=== PATIENT | male | born 1995 | race Caucasian/White ===

== ENCOUNTER 2019-04-29 09:09 | Day surgery (SDC) | payer OTHER ==
[2019-04-28 17:09] VITALS: Ht 177.8 cm; Wt 65.9 kg
[2019-04-29] VITALS (12 sets, daily range): BP systolic 94–110; BP diastolic 46–73; PULSE 50–68; RESP 10–27
[~2019-04-29] VITALS: Ht 177.8 cm; Wt 65.9 kg
[2019-04-29] MEDS ORDERED: CYAN100T PO (09:42)
[2019-04-29] MEDS ORDERED: RIBO400T PO (09:43)
[2019-04-29] MEDS ORDERED: CEFAZOLIN 2 GM/50 ML (PMX) 50 ML IVPB ONE (11:00)
[2019-04-29] MEDS ORDERED: SOD CHLORIDE 0.9% 1,000 ML IV SCH (11:00)
[2019-04-29] MEDS ORDERED: BUPIVACAINE 0.25% (MPF) 30 ML INJ ONE (11:53)
--- NOTE | 2019-04-29 12:09 | PREAC ---
Date/Time of Note Date/Time of Note DATE: 04/29/19 TIME: 12:08 Anesthesia Eval and Record Evaluation Time Pre-Procedure Interview DATE: 04/29/19 TIME: 12:08 Age 24 Sex male NPO: 8 hrs Preoperative diagnosis scalp mass Planned procedure excision scalp mass Past Medical History Past Medical History: None Surgery & Anesthesia Issues No known issue Meds Anticoagulation: No Beta Estiven within 24 hr: No Reason Beta Estiven not given: Pt. not on B-Estiven Reported Medications Riboflavin (Riboflavin) 400 Mg Tablet, 400 MG PO DAILY, TAB 04/29/19 Discontinued Reported Medications Cyanocobalamin* (Vitamin B12*) 100 Mcg Tab, 400 MCG PO DAILY, TAB 04/29/19 Current Medications Sodium Chloride 1,000 ml @ 75 mls/hr [id number] IV ; Start 04/29/19 at 11:00; Stop 04/30/19 at 00:19 Meds reviewed: Yes Allergies Coded Allergies: No Known Drug Allergy (Verified Allergy, Unknown, 04/29/19) Allergies Reviewed: Yes Labs/Studies Labs Reviewed: Reviewed by anesthesiologist Result Diagram: 04/29/19 1050 04/29/19 1050 Laboratory Tests 04/29/19 10:50 test: N/A Studies: ECG (n/a), CXR (n/a) Pre-procedure Exam Last vitals Vital Signs Date Temp Pulse Resp B/P (MAP) Pulse Ox O2 O2 Flow FiO2 Time Delivery Rate 04/29/19 98.4 50 16 110/73 100 Room Air 10:58 (85) Airway: Adequate mouth opening Mallampati: Mallampati I Teeth: Normal Lung: Normal Heart: Normal ASA Physical Status ASA physical status: 1 Emergency: None Planned Anesthetic General/MAC: LMA Planned Pain Management Parenteral pain med Pre-operative Attestations Prior to commencing anesthesia and surgery, the patient was re-evaluated, there was verification of: *The patient's identity *The results of appropriate recent lab work and preoperative vital signs *The above evaluation not changing prior to induction *Anesthetic plan, risk benefits, alternative and complications discussed with patient/family; questions answered; patient/family understands, accepts and wishes to proceed. SANDRA PEREZ MD Apr 29, 2019 12:09
[2019-04-29] MEDS ORDERED: MEPERIDINE 25 MG INJ IV PRN (12:30)
[2019-04-29] MEDS ORDERED: HYDROmorphONE 1 MG/5 ML IV SYRINGE IV PRN ×3 (12:30)
[2019-04-29] MEDS ORDERED: OXYCODONE/ACETAMINOPHEN (5/325) TAB PO PRN ×2 (12:30)
[2019-04-29] MEDS ORDERED: FENTAnyl 50 MCG/ML VIAL IV PRN ×3 (12:30)
[2019-04-29] MEDS ORDERED: DIPHENHYDRAMINE 50 MG INJ IV PRN (12:30)
[2019-04-29] MEDS ORDERED: ONDANSETRON 4 MG INJ IV PRN (12:30)
[2019-04-29] MEDS ORDERED: KETOROLAC 30 MG INJ IV PRN (12:30)
[2019-04-29] MEDS ORDERED: ONDANSETRON 4 MG INJ ONE (12:40)
[2019-04-29] MEDS ORDERED: METOCLOPRAMIDE 10 MG INJ ONE (12:40)
[2019-04-29] MEDS ORDERED: FENTAnyl 50 MCG/ML VIAL ONE (12:40)
[2019-04-29] MEDS ORDERED: PROPOFOL 20 ML ONE ×2 (12:40→13:03)
[2019-04-29] MEDS ORDERED: MIDAZOLAM 1 MG/ML 2 ML INJ ONE (12:40)
[2019-04-29] MEDS ORDERED: KETOROLAC 30 MG INJ ONE (12:52)
[2019-04-29] MEDS ORDERED: BACITRACIN/POLYMYXIN 28.35 GM OINT TOP ONE (13:02)
--- NOTE | 2019-04-29 13:07 | OPR ---
Date/Time of Note Date/Time of Note DATE: 04/29/19 TIME: 13:05 Operative Report Procedure Date: Apr 29, 2019 Preoperative Diagnosis left scalp mass Postoperative Diagnosis same Operation/Procedure Performed 1. excision of left scalp mass 3 cm mass 3 cm incision 2. localized adjacent tissue transfer with the use of skin flaps 6 sq cm defect of scalp 3. therapeutic injection of subcutaneous local anesthesia Surgeon see signature line Hot Cell Technician none Anesthesia Type: general Estimated Blood Loss: 0 - 10 ml's Transfusion none Specimen left scalp mass Grafts/Implants none Complications none Pt Condition Post Procedure: stable Indications This is a 24-year-old male with a left scalp mass. He request surgical excision due to the pain. Risks alternatives benefits and personal were discussed with patient. Potential complications including but not limited to bleeding infection recurrence of mass scar alopecia were discussed the patient. Patient expressed understanding and consents to the operation. Procedure Description Patient is taken to the OR and prepped and draped in usual sterile fashion. Surgical time was performed. IV antibiotics given. Elliptical incision made over the left scalp mass with a 15 blade. Dissection with cautery skin onto the mass and the mass was circumferentially excised. Good hemostasis status. Due to tissue defect localization just transfer with these of skin flaps was performed. Multilayer closure with interrupted 3-0 Vicryl and running 4-0 Monocryl. Therapeutic subcutaneous local anesthesia was injected at the incision site. Bacitracin and dry dressing was applied. Paola PETERSON Apr 29, 2019 13:07
[2019-04-29] MEDS ORDERED: HYDROCODONE/APAP (5/325) TAB PO ONE (13:30)
--- NOTE | 2019-04-30 08:31 | PAC ---
Date/Time of Note Date/Time of Note DATE: 04/30/19 TIME: 08:31 Post-Anesthesia Notes Post-Anesthesia Note Last documented vital signs Vital Signs Date Temp Pulse Resp B/P (MAP) Pulse Ox O2 O2 Flow FiO2 Time Delivery Rate 04/29/19 97.0 55 16 101/55 96 14:23 (70) 04/29/19 Room Air 13:58 04/29/19 8.0 13:18 Activity: WNL Respiratory function: WNL Cardiovascular function: WNL Mental status: Baseline Pain reasonably controlled: Yes Hydration appropriate: Yes Nausea/Vomiting absent: No SANDRA PEREZ MD Apr 30, 2019 08:31
== END 2019-04-29 14:43 | disposition home or self-care (01) ==
LOC: SDS 09:09
PROVIDERS: ATTEND Surgery
DX: L72.11 Pilar cyst (principal); F41.9 Anxiety disorder, unspecified
CPT/HCPCS: 14020; 80053; 85025; 85610; 85730; J0690; J1885; J2250; J2405; J2765; J3010; Z7610; 88307